=== PATIENT | male | born 1950 | race Caucasian/White ===

== ENCOUNTER 2017-07-31 02:23 | Emergency (ER) | payer MEDICAID, SELFPAY ==
[2017-07-31] VITALS (8 sets, daily range): BP systolic 121–202; BP diastolic 71–126; PULSE 67–81; RESP 12–22; TEMP 36.4; O2SAT 98–100; BMI 28.0
--- NOTE | 2017-07-31 02:31 | ED.CHESTPAIN ---
HPI - Chest Pain General Chief Complaint: Back Pain/Injury Stated Complaint: BACK PAIN Time Seen by Provider: 07/31/17 02:31 Source: patient, EMS and RN notes reviewed Mode of arrival: EMS Limitations: no limitations History of Present Illness HPI narrative: Patient is a 67-year-old male presenting with sudden onset worsening back pain. His he pulled crab Bray yesterday but nothing out of the ordinary. He denies any injury. Thought he could walk it off he was doing well until this evening. The pain suddenly intensified from his back and is now moving around his abdomen on it. This seems to be in the thoracic area but he says his whole back hurts. No numbness or tingling in his lower extremities no weakness in any extremities. No shortness of breath. He was noted to be quite hypertensive for EMS with a systolic in the 200s. He was given nitro aspirin and fat in all prior to arrival his pain is a little bit better. MD complaint: chest pain Onset (ago): hour(s) Duration: constant Severity: severe Severity scale (1-10): 10 Pain radiation: abdomen Treatments prior to arrival chest pain: aspirin, nitroglycerin and other (Sent in all) Related Data Allergies Allergy/AdvReac Type Severity Reaction Status Date / Time No Known Drug Allergies Allergy Verified 07/31/17 02:58 Review of Systems Review of Systems All systems reviewed & are unremarkable except as noted in HPI and below Constitutional Denies chills, Denies fever(s), Denies headache(s), Denies lethargy and Denies weakness ENT Ears, Nose, Mouth, and Throat: Denies dizziness, Denies dry mouth and Denies headache(s) Cardiovascular Denies chest pain, Denies diaphoresis, Denies syncope and Denies dyspnea on exertion Respiratory Denies change in phlegm color, Denies cough and Denies dyspnea on exertion Gastrointestinal Gastrointestinal: Reports abdominal pain, Denies diarrhea, Denies nausea and Denies vomiting Genitourinary Denies dysuria and Denies flank pain Musculoskeletal Reports system reviewed and no additional complaints, except as docu, Reports back pain, Denies muscle weakness, Denies numbness, Denies radiating pain into limb and Denies tingling Neurologic Denies dizziness, Denies syncope, Denies headache(s), Denies numbness, Denies tingling, Denies paresthesias, Denies tremor(s) and Denies weakness [facility] Social History Smoking Status: Current every day smoker Exam Narrative Exam Narrative: Blood pressure 202/116 Heart rate 78 Respirations 22 Temp 97.5 Oxygen 99% Const General: well developed, acute distress (Appears in pain) and No diaphoretic Nutritional Appearance: average body habitus Orientation: alert, awake, oriented x3 and oriented to person HENMO Head: normal to inspection and normocephalic Eyes General: appearance normal, both eyes and all related structures Neck Neck: normal visual inspection, full ROM and No JVD Resp Effort & Inspection: normal respiratory effort and able to speak in complete sentences Auscultation: clear to auscultation bilaterally Cardio Rate: regular rate Rhythm: regular rhythm Heart Sounds: S1 normal and S2 normal Pulses: radial pulses present bilaterally Skin General: no rashes or lesions noted, No mottling, No petechiae and No purpura Neuro General: alert, awake, oriented x3, normal light touch, pain and propioception, normal sensation to monofilament and deep tendon reflexes 2+ bilaterally Cranial Nerves: CN's II-XI intact bilaterally Cognition: normal cognition Speech: speech normal MDM - Chest Pain MDM Narrative Medical decision making narrative: Patient only gets minimal relief with 3 nitroglycerin. He is given morphine which she says helps but is still painful. He is given Dilaudid which he says finally works. D-dimer is significantly elevated in patient's pain is uncontrolled. Concern for dissection. 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 More aggressive management of patient's blood pressure which is now with a systolic of 179-180. Labetalol and nitroprusside 5:[address] Hassan vascular surgery at [facility] has been updated on patient's symptoms and test results he has reviewed the CT. Goal blood pressure is a systolic under 120 and heart rate under 80. Patient will be a direct admit he recommends flying if possible. Patient understands and is agreeable to treatment and transport. Lab Data Attestation: I reviewed the patient's lab results. Result diagrams: 07/31/17 02:15 07/31/17 02:15 Lab Results 07/31/17 07/31/17 07/31/17 Range/Units 02:15 02:15 02:15 WBC 16.1 H (4.5-11.0) X10^3/uL RBC 5.53 (4.5-5.9) X10^6/uL Hgb 17.9 H (13.5-17.5) g/dL Hct 50.4 (41-53) % MCV 91.1 (80-100) fL MCH 32.3 (26-34) PG MCHC 35.5 (30-36) % RDW 13.6 (11.6-14.8) % Plt Count 215 (150-400) X10^3/uL Neut % (Auto) 70.8 (50-75) % Lymph % (Auto) 17.4 L (25-40) % [place] % (Auto) 9.0 (3-14) % Eos % (Auto) 2.0 (2-4) % Baso % (Auto) 0.8 (0-2) % Neut # (Auto) 28320 H (6971-3604) /uL D-Dimer 3878 H (<231) ng/mL Sodium 140 (137-145) mmol/L Potassium 3.8 (3.4-5.1) mmol/L Chloride 103.0 (98-107) mmol/L Carbon Dioxide 26.0 (22-32) mmol/L BUN 26.0 H (9-20) mg/dL Creatinine 0.90 (0.66-1.25) mg/dL Estimated GFR > 60.0 (>60) mL/min BUN/Creatinine Ratio 28.9 H (6-22) Glucose 150 H (80-110) mg/dL Calcium 8.9 (8.4-10.2) mg/dL Total Bilirubin 0.8 (0.2-1.3) mg/dL AST 44 (17-59) IU/L ALT 49 (21-72) IU/L Alkaline Phosphatase 101 (38-126) U/L Total Creatine Kinase 113 (55-170) U/L CK-MB (CK-2) 3.86 H (<2.37) ng/mL CK-MB (CK-2) Rel Index 3.4 (1.5-5.0) % Troponin I 0.037 H (0.01-0.034) ng/mL Total Protein 7.8 (6.3-8.2) g/dL Albumin 4.1 (3.5-5.0) g/dL Globulin 3.7 (1.7-4.1) g/dL Albumin/Globulin Ratio 1.1 (1.0-2.8) Lipase 48 (23-300) U/L Urine RBC (0-5/HPF) Ur Culture Indicated? Micro UA Comment Urine Opiates Screen (Negative) Ur Oxycodone Screen (Negative) Urine Methadone Screen (Negative) Ur Barbiturates Screen (Negative) U Tricyclic Antidepress (Negative) Ur Phencyclidine Scrn (Negative) Ur Amphetamines Screen (Negative) U Methamphetamines Scrn (Negative) Ur MDMA Scrn (Ecstasy) (Negative) U Benzodiazepines Scrn (Negative) Urine Cocaine Screen (Negative) U Marijuana (THC) Screen (Negative) 07/31/17 07/31/17 Range/Units 03:38 03:45 WBC (4.5-11.0) X10^3/uL RBC (4.5-5.9) X10^6/uL Hgb (13.5-17.5) g/dL Hct (41-53) % MCV (80-100) fL MCH (26-34) PG MCHC (30-36) % RDW (11.6-14.8) % Plt Count (150-400) X10^3/uL Neut % (Auto) (50-75) % Lymph % (Auto) (25-40) % [place] % (Auto) (3-14) % Eos % (Auto) (2-4) % Baso % (Auto) (0-2) % Neut # (Auto) (5680-2789) /uL D-Dimer (<231) ng/mL Sodium (137-145) mmol/L Potassium (3.4-5.1) mmol/L Chloride (98-107) mmol/L Carbon Dioxide (22-32) mmol/L BUN (9-20) mg/dL Creatinine (0.66-1.25) mg/dL Estimated GFR (>60) mL/min BUN/Creatinine Ratio (6-22) Glucose (80-110) mg/dL Calcium (8.4-10.2) mg/dL Total Bilirubin (0.2-1.3) mg/dL AST (17-59) IU/L ALT (21-72) IU/L Alkaline Phosphatase (38-126) U/L Total Creatine Kinase (55-170) U/L CK-MB (CK-2) (<2.37) ng/mL CK-MB (CK-2) Rel Index (1.5-5.0) % Troponin I (0.01-0.034) ng/mL Total Protein (6.3-8.2) g/dL Albumin (3.5-5.0) g/dL Globulin (1.7-4.1) g/dL Albumin/Globulin Ratio (1.0-2.8) Lipase (23-300) U/L Urine RBC 0-1/hpf (0-5/HPF) Ur Culture Indicated? Cult not indicated Micro UA Comment Microscopic normal Urine Opiates Screen Positive H (Negative) Ur Oxycodone Screen Negative (Negative) Urine Methadone Screen Negative (Negative) Ur Barbiturates Screen Negative (Negative) U Tricyclic Antidepress Negative (Negative) Ur Phencyclidine Scrn Negative (Negative) Ur Amphetamines Screen Negative (Negative) U Methamphetamines Scrn Negative (Negative) Ur MDMA Scrn (Ecstasy) Negative (Negative) U Benzodiazepines Scrn Negative (Negative) Urine Cocaine Screen Negative (Negative) U Marijuana (THC) Screen Negative (Negative) Imaging Data Chest x-ray: Attestation: I personally reviewed and interpreted this imaging study as follows: My impression: No acute cardiopulmonary process no widened mediastinum CTA chest/ab/pelvis: Radiologist's impression: electrical test technician report there is intramural hematoma in the descending aorta begins just distal to the left subclavian artery and extends to the diaphragm. Focal outpouching of contrast in the distal descending along the anterior medial wall measures approximately 1.7 x 0.8 cm consistent with penetrating atherosclerotic ulcer. There is also irregular mural thrombus at the proximal descending aorta. The transverse aortic diameter proximal descending 3.9 cm, mid descending 4.4 cm, distal descending just above the diaphragm 3.9 cm. The ascending aorta is normal. No intimal flap or emmett disscetion. ECG Data Attestation: I personally reviewed and interpreted this ECG as follows: Prior ECG tracings: not available for review Interpretation: Normal sinus rhythm rate 77 is no T-wave inversions no ST depressions or elevations EKG 2. Sinus rhythm rate 49 similar to previous Critical Care Time Critical Care Time: Yes Total Critical Care Time: 60 Attestation: The patient satisfied the definition of criticality in that they had a high probability of imminent deterioration of their conditon. Critical care time includes time spent at the bedside, plus where appropriate: gathering information from family, EMS, old records, caregivers; interpretation of test results; and time spent discussing patient with other physicians Discharge Plan Departure Patient Disposition: [facility] Clinical Impression: Intramural aortic hematoma
--- NOTE | 2017-07-31 02:33 | DI.RAD.S_ITS ---
PROCEDURE: XR CHEST 2V INDICATIONS: 67 year-old male with chest pain. TECHNIQUE: 2 views of the chest were acquired. COMPARISON: None. FINDINGS: Surgical changes and devices: None. Lungs and pleura: No pleural effusions or pneumothorax. Lungs are clear. Mediastinum: Mediastinal contours are normal. Heart size is normal. There is aortic atherosclerosis. Bones and chest wall: No suspicious bony abnormalities. Soft tissues appear unremarkable. IMPRESSION: No acute cardiopulmonary disease. Dictated by: Nuno Warner M.D. on 07/31/2017 at 7:51 Approved by: Nuno Warner M.D. on 07/31/2017 at 7:52
[2017-07-31] MEDS: NITROGLYCERIN 0.4 MG SL TAB SL ×3 (02:40→03:09)
[2017-07-31] MEDS: SODIUM CHLORIDE 0.9% 1,000 ML 150 ML IV (02:41)
[2017-07-31 02:48] LABS: Add Manual Diff / Slide Review NO; Basophils Percent Auto 0.8 % (0-2); Hematocrit 50.4 % (41-53); Hemoglobin 17.9 g/dL (13.5-17.5); Lymphocytes Percent Auto 17.4 % (25-40); Mean Corpuscular HGB Conc 35.5 % (30-36); Mean Corpuscular Hemoglobin 32.3 PG (26-34); Mean Corpuscular Volume 91.1 fL (80-100); Neutrophils Absolute Auto 11400 /uL (3000-5900); Neutrophils Percent Auto 70.8 % (50-75); Platelet Count 215 X10^3/uL (150-400); Red Blood Cell Count 5.53 X10^6/uL (4.5-5.9); Red Cell Distribution Width 13.6 % (11.6-14.8); White Blood Cell Count 16.1 X10^3/uL (4.5-11.0)
--- NOTE | 2017-07-31 02:48 | PC.NURSE ---
PT STATES SUDDEN SEVERE BACK PAIN AT 199907/30/17 WAS PULLING CRAB POTS EARLIER . PT ARRIVED VIA MEDICS, RECEIVED 324MG ASA, 1 NITRO, AND 100MCG FETANYL. PT ABLE TO TRANSFER FROM MEDIC STRETCHER TO ER STRETCHER BY SLIDING INDEPENDENTLY. PT DENIES CP OR SOB.
[2017-07-31 03:00] LABS: D Dimer 3878 ng/mL (<231)
[2017-07-31] MEDS: MORPHINE 5 MG/ML INJ IV (03:10)
[2017-07-31 03:21] LABS: Alanine Aminotransferase 49 IU/L (21-72); Albumin 4.1 g/dL (3.5-5.0); Albumin Globulin Ratio 1.1 (1.0-2.8); Alkaline Phosphatase 101 U/L (38-126); Aspartate Aminotransferase 44 IU/L (17-59); BUN Creatinine Ratio 28.9 (6-22); Bilirubin Total 0.8 mg/dL (0.2-1.3); Calcium 8.9 mg/dL (8.4-10.2); Creatine Kinase 113 U/L (55-170); Estimated Glomerular Filt Rate > 60.0 mL/min (>60); Globulin 3.7 g/dL (1.7-4.1); Glucose 150 mg/dL (80-110); HEMOLYSIS < 15 (0-50); Lipase 48 U/L (23-300); Potassium 3.8 mmol/L (3.4-5.1); Sodium 140 mmol/L (137-145); Total Protein 7.8 g/dL (6.3-8.2)
--- NOTE | 2017-07-31 03:21 | DI.CT.S_ITS ---
PROCEDURE: CT ANGIO CHEST ABDOMEN PELVIS INDICATIONS: 67-year-old male with back pain and elevated d-dimer level. TECHNIQUE: Precontrast 5 mm thick sections acquired from the lung apices to the iliac crests. After the administration of intravenous contrast, 2.5 mm thick sections again acquired from the lung apices to the iliac crests. Maximum intensity projection (MIP) oblique sagittal and coronal reformats were then acquired. For radiation dose reduction, the following was used: automated exposure control. COMPARISON: None. FINDINGS: Preliminary interpretation rendered by [facility]. Image quality: Excellent. AORTA: Intramural hematoma: Present, along the entire length of the descending thoracic aorta beginning just distal to the origin of the left subclavian artery. Maximum hematoma thickness: 1.4 cm; greater than 1.1 cm has poorer prognosis. Focal contrast enhancement: Intramural blood pool (< 2 mm neck or imperceptible communication with aortic lumen): Absent. Ulcer-like projection (broad communication with aortic lumen > 3 mm): Present, just superior to the diaphragmatic hiatus, measuring 2.3 x 1.9 x 0.9 cm. Dissection: Absent. Kramer classification: Not applicable. Maximum aortic diameter: 4.5 cm in the descending thoracic aorta. [If Fady A dissection, > 5.0 cm has a poorer prognosis. If Fady B dissection, > 4.0 cm has a poorer prognosis.] Additional 3.0 cm infrarenal abdominal aortic aneurysm and 3.1 cm left common iliac artery aneurysm, both containing peripheral mural thrombus. Periaortic hematoma: Absent. CHEST: Lungs and pleura: No acute airspace opacities. No pleural effusions or pneumothorax. Central and peripheral airways are patent and normal in caliber. Mediastinum: Heart size is normal, with mild coronary artery atherosclerosis. No pericardial effusion. No mediastinal or hilar adenopathy by size criteria. Central pulmonary arteries are normal in size. Esophagus is normal in caliber. No hiatal hernias. Bones and chest wall: No axillary adenopathy by size criteria. Thyroid gland is normal in size. No suspicious bony lesions. No vertebral body compression fractures. ABDOMEN: Vasculature: Celiac trunk and mesenteric arteries are patent. Renal arteries are also patent, with bilateral accessory renal arteries present. Solid organs: Liver is normal in size and enhancement. Gallbladder wall thickness is normal. Biliary system is non dilated. Pancreas enhances normally. Spleen is normal in size and enhancement. No adrenal nodules. Both kidneys are normal in size and enhancement, without hydronephrosis. Peritoneum and bowel: No free fluid or air. Bowel loops are normal in caliber and wall thickness. There is sigmoid colon diverticulosis. Nodes and vessels: No retroperitoneal or mesenteric adenopathy by size criteria. Inferior vena cava is normal in morphology. Miscellaneous: No ventral hernias. PELVIS: Genitourinary: Bladder wall thickness is normal. Miscellaneous: No inguinal hernias or adenopathy. No ventral hernias. Bones: No suspicious bony lesions. No vertebral body compression fractures. There is lower lumbar spine facet joint degeneration. IMPRESSION: 1. Extensive descending thoracic aortic intramural hematoma measures up to 1.4 cm thick, containing a 2.3 cm ulcer-like projection near the diaphragmatic hiatus. 2. Additional 3.0 cm infrarenal abdominal aortic aneurysm, and 3.1 cm left common iliac artery aneurysm, with peripheral mural thrombus. 3. Sigmoid colon diverticulosis, without acute diverticulitis. No significant discrepancy with preliminary [employer] report. Dictated by: Nuno Warner M.D. on 07/31/2017 at 8:13 Approved by: Nuno Warner M.D. on 07/31/2017 at 8:35
[2017-07-31] MEDS: HYDROMORPHONE 2 MG INJ 1 MG IV ×2 (03:29→07:01)
[2017-07-31 03:33] LABS: CKMB % Relative Index 3.4 % (1.5-5.0); Creatine Kinase MB 3.86 ng/mL (<2.37); Troponin I 0.037 ng/mL (0.01-0.034)
[2017-07-31 03:55] LABS: Urine Amphetamines Negative (Negative); Urine Barbiturates Negative (Negative); Urine Benzodiazepines Negative (Negative); Urine Cocaine Negative (Negative); Urine MDMA Negative (Negative); Urine Methadone Negative (Negative); Urine Methamphetamines Negative (Negative); Urine Morphine/Opi cutoff 2000 Positive (Negative); Urine Oxycodone Negative (Negative); Urine Phencyclidine Negative (Negative); Urine Tetrahydrocannabinol Negative (Negative); Urine Tricyclic Antidepressant Negative (Negative)
--- NOTE | 2017-07-31 04:19 | ED_ITS ---
HPI - Chest Pain General Chief Complaint: Back Pain/Injury Stated Complaint: BACK PAIN Time Seen by Provider: 07/31/17 02:31 Source: patient, EMS and RN notes reviewed Mode of arrival: EMS Limitations: no limitations History of Present Illness HPI narrative: Patient is a 67-year-old male presenting with sudden onset worsening back pain. His he pulled crab Bray yesterday but nothing out of the ordinary. He denies any injury. Thought he could walk it off he was doing well until this evening. The pain suddenly intensified from his back and is now moving around his abdomen on it. This seems to be in the thoracic area but he says his whole back hurts. No numbness or tingling in his lower extremities no weakness in any extremities. No shortness of breath. He was noted to be quite hypertensive for EMS with a systolic in the 200s. He was given nitro aspirin and fat in all prior to arrival his pain is a little bit better. MD complaint: chest pain Onset (ago): hour(s) Duration: constant Severity: severe Severity scale (1-10): 10 Pain radiation: abdomen Treatments prior to arrival chest pain: aspirin, nitroglycerin and other (Sent in all) Related Data Allergies Allergy/AdvReac Type Severity Reaction Status Date / Time No Known Drug Allergies Allergy Verified 07/31/17 02:58 Review of Systems Review of Systems All systems reviewed & are unremarkable except as noted in HPI and below Constitutional Denies chills, Denies fever(s), Denies headache(s), Denies lethargy and Denies weakness ENT Ears, Nose, Mouth, and Throat: Denies dizziness, Denies dry mouth and Denies headache(s) Cardiovascular Denies chest pain, Denies diaphoresis, Denies syncope and Denies dyspnea on exertion Respiratory Denies change in phlegm color, Denies cough and Denies dyspnea on exertion Gastrointestinal Gastrointestinal: Reports abdominal pain, Denies diarrhea, Denies nausea and Denies vomiting Genitourinary Denies dysuria and Denies flank pain Musculoskeletal Reports system reviewed and no additional complaints, except as docu, Reports back pain, Denies muscle weakness, Denies numbness, Denies radiating pain into limb and Denies tingling Neurologic Denies dizziness, Denies syncope, Denies headache(s), Denies numbness, Denies tingling, Denies paresthesias, Denies tremor(s) and Denies weakness [facility] Social History Smoking Status: Current every day smoker Exam Narrative Exam Narrative: Blood pressure 202/116 Heart rate 78 Respirations 22 Temp 97.5 Oxygen 99% Const General: well developed, acute distress (Appears in pain) and No diaphoretic Nutritional Appearance: average body habitus Orientation: alert, awake, oriented x3 and oriented to person HENAZ Head: normal to inspection and normocephalic Eyes General: appearance normal, both eyes and all related structures Neck Neck: normal visual inspection, full ROM and No JVD Resp Effort & Inspection: normal respiratory effort and able to speak in complete sentences Auscultation: clear to auscultation bilaterally Cardio Rate: regular rate Rhythm: regular rhythm Heart Sounds: S1 normal and S2 normal Pulses: radial pulses present bilaterally Skin General: no rashes or lesions noted, No mottling, No petechiae and No purpura Neuro General: alert, awake, oriented x3, normal light touch, pain and propioception, normal sensation to monofilament and deep tendon reflexes 2+ bilaterally Cranial Nerves: CN's II-XI intact bilaterally Cognition: normal cognition Speech: speech normal MDM - Chest Pain MDM Narrative Medical decision making narrative: Patient only gets minimal relief with 3 nitroglycerin. He is given morphine which she says helps but is still painful. He is given Dilaudid which he says finally works. D-dimer is significantly elevated in patient's pain is uncontrolled. Concern for dissection. 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 More aggressive management of patient's blood pressure which is now with a systolic of 179-180. Labetalol and nitroprusside 5:[address] Hassan vascular surgery at [facility] has been updated on patient 's symptoms and test results he has reviewed the CT. Goal blood pressure is a systolic under 120 and heart rate under 80. Patient will be a direct admit he recommends flying if possible. Patient understands and is agreeable to treatment and transport. Lab Data Attestation: I reviewed the patient's lab results. Result diagrams: 07/31/17 02:15 07/31/17 02:15 Lab Results 07/31/17 07/31/17 07/31/17 Range/Units 02:15 02:15 02:15 WBC 16.1 H (4.5-11.0) X10^3/uL RBC 5.53 (4.5-5.9) X10^6/uL Hgb 17.9 H (13.5-17.5) g/dL Hct 50.4 (41-53) % MCV 91.1 (80-100) fL MCH 32.3 (26-34) PG MCHC 35.5 (30-36) % RDW 13.6 (11.6-14.8) % Plt Count 215 (150-400) X10^3/uL Neut % (Auto) 70.8 (50-75) % Lymph % (Auto) 17.4 L (25-40) % [place] % (Auto) 9.0 (3-14) % Eos % (Auto) 2.0 (2-4) % Baso % (Auto) 0.8 (0-2) % Neut # (Auto) 90955 H (9350-7657) /uL D-Dimer 3878 H (<231) ng/mL Sodium 140 (137-145) mmol/L Potassium 3.8 (3.4-5.1) mmol/L Chloride 103.0 (98-107) mmol/L Carbon Dioxide 26.0 (22-32) mmol/L BUN 26.0 H (9-20) mg/dL Creatinine 0.90 (0.66-1.25) mg/dL Estimated GFR > 60.0 (>60) mL/min BUN/Creatinine Ratio 28.9 H (6-22) Glucose 150 H (80-110) mg/dL Calcium 8.9 (8.4-10.2) mg/dL Total Bilirubin 0.8 (0.2-1.3) mg/dL AST 44 (17-59) IU/L ALT 49 (21-72) IU/L Alkaline Phosphatase 101 (38-126) U/L Total Creatine Kinase 113 (55-170) U/L CK-MB (CK-2) 3.86 H (<2.37) ng/mL CK-MB (CK-2) Rel Index 3.4 (1.5-5.0) % Troponin I 0.037 H (0.01-0.034) ng/mL Total Protein 7.8 (6.3-8.2) g/dL Albumin 4.1 (3.5-5.0) g/dL Globulin 3.7 (1.7-4.1) g/dL Albumin/Globulin Ratio 1.1 (1.0-2.8) Lipase 48 (23-300) U/L Urine RBC (0-5/HPF) Ur Culture Indicated? Micro UA Comment Urine Opiates Screen (Negative) Ur Oxycodone Screen (Negative) Urine Methadone Screen (Negative) Ur Barbiturates Screen (Negative) U Tricyclic Antidepress (Negative) Ur Phencyclidine Scrn (Negative) Ur Amphetamines Screen (Negative) U Methamphetamines Scrn (Negative) Ur MDMA Scrn (Ecstasy) (Negative) U Benzodiazepines Scrn (Negative) Urine Cocaine Screen (Negative) U Marijuana (THC) Screen (Negative) 07/31/17 07/31/17 Range/Units 03:38 03:45 WBC (4.5-11.0) X10^3/uL RBC (4.5-5.9) X10^6/uL Hgb (13.5-17.5) g/dL Hct (41-53) % MCV (80-100) fL MCH (26-34) PG MCHC (30-36) % RDW (11.6-14.8) % Plt Count (150-400) X10^3/uL Neut % (Auto) (50-75) % Lymph % (Auto) (25-40) % [place] % (Auto) (3-14) % Eos % (Auto) (2-4) % Baso % (Auto) (0-2) % Neut # (Auto) (3587-9002) /uL D-Dimer (<231) ng/mL Sodium (137-145) mmol/L Potassium (3.4-5.1) mmol/L Chloride (98-107) mmol/L Carbon Dioxide (22-32) mmol/L BUN (9-20) mg/dL Creatinine (0.66-1.25) mg/dL Estimated GFR (>60) mL/min BUN/Creatinine Ratio (6-22) Glucose (80-110) mg/dL Calcium (8.4-10.2) mg/dL Total Bilirubin (0.2-1.3) mg/dL AST (17-59) IU/L ALT (21-72) IU/L Alkaline Phosphatase (38-126) U/L Total Creatine Kinase (55-170) U/L CK-MB (CK-2) (<2.37) ng/mL CK-MB (CK-2) Rel Index (1.5-5.0) % Troponin I (0.01-0.034) ng/mL Total Protein (6.3-8.2) g/dL Albumin (3.5-5.0) g/dL Globulin (1.7-4.1) g/dL Albumin/Globulin Ratio (1.0-2.8) Lipase (23-300) U/L Urine RBC 0-1/hpf (0-5/HPF) Ur Culture Indicated? Cult not indicated Micro UA Comment Microscopic normal Urine Opiates Screen Positive H (Negative) Ur Oxycodone Screen Negative (Negative) Urine Methadone Screen Negative (Negative) Ur Barbiturates Screen Negative (Negative) U Tricyclic Antidepress Negative (Negative) Ur Phencyclidine Scrn Negative (Negative) Ur Amphetamines Screen Negative (Negative) U Methamphetamines Scrn Negative (Negative) Ur MDMA Scrn (Ecstasy) Negative (Negative) U Benzodiazepines Scrn Negative (Negative) Urine Cocaine Screen Negative (Negative) U Marijuana (THC) Screen Negative (Negative) Imaging Data Chest x-ray: Attestation: I personally reviewed and interpreted this imaging study as follows: My impression: No acute cardiopulmonary process no widened mediastinum CTA chest/ab/pelvis: Radiologist's impression: shift supervisor report there is intramural hematoma in the descending aorta begins just distal to the left subclavian artery and extends to the diaphragm. Focal outpouching of contrast in the distal descending along the anterior medial wall measures approximately 1.7 x 0.8 cm consistent with penetrating atherosclerotic ulcer. There is also irregular mural thrombus at the proximal descending aorta. The transverse aortic diameter proximal descending 3.9 cm, mid descending 4.4 cm, distal descending just above the diaphragm 3.9 cm. The ascending aorta is normal. No intimal flap or emmett disscetion. ECG Data Attestation: I personally reviewed and interpreted this ECG as follows: Prior ECG tracings: not available for review Interpretation: Normal sinus rhythm rate 77 is no T-wave inversions no ST depressions or elevations EKG 2. Sinus rhythm rate 49 similar to previous Critical Care Time Critical Care Time: Yes Total Critical Care Time: 60 Attestation: The patient satisfied the definition of criticality in that they had a high probability of imminent deterioration of their conditon. Critical care time includes time spent at the bedside, plus where appropriate: gathering information from family, EMS, old records, caregivers; interpretation of test results; and time spent discussing patient with other physicians Discharge Plan Departure Patient Disposition: [facility] Clinical Impression: Intramural aortic hematoma
[2017-07-31] MEDS: LABETALOL 20 MG/4 ML SYRINGE IV (04:40)
[2017-07-31] MEDS: WATER IV (04:59)
[2017-07-31] MEDS: NITROPRUSSIDE SODIUM IV (04:59)
[2017-07-31] MEDS: DEXTROSE 5% IV (04:59)
[2017-07-31 05:21] LABS: Culture Indicated Urine Cult Not Indicated; RBC Urine 0-1/HPF (0-5/HPF); Urine Comments Microscopic Normal
[2017-07-31] MEDS: NICOTINE 21 MG PATCH TOP (07:12)
--- NOTE | 2017-07-31 07:35 | PC.NURSE ---
pt transferred to [facility] with [facility] with Nipride drip infusing at 89ml/hr, infusion stop time 0700.
== END 2017-07-31 07:46 | disposition short-term general hospital (02) ==
PROVIDERS: Emergency Provider Emergency Medicine
DX: I71.00 Dissection of unspecified site of aorta (principal)
CPT/HCPCS: 36591; 71046; 71275; 74174; 80053; 80305; 81015; 82550; 82553; 83690; 84484; 85025; 85379; 93005; 96374; 96375; 96376; 99285; 99291; 99292; J1170; J2270; Q9967

== ENCOUNTER → 2020-04-21 08:12 | Outpatient (CLI) | payer MEDICARE, SELFPAY ==
[2020-04-21] MEDS: COVID-19 VACC #1, MRNA(MOD) 100 MCG/0.5 ML VIAL IM (08:20)
== END ==
PROVIDERS: PCP Student in an Organized Health Care Education/Training Program; Visit Provider Internal Medicine
DX: Z23 Encounter for immunization (principal)
CPT/HCPCS: 0011A; 91301

== ENCOUNTER → 2020-05-19 08:07 | Outpatient (CLI) | payer MEDICARE, SELFPAY ==
[2020-05-19] MEDS: COVID-19 VACC #2, MRNA(MOD) 100 MCG/0.5 ML VIAL IM (08:14)
== END ==
PROVIDERS: PCP Student in an Organized Health Care Education/Training Program; Visit Provider Internal Medicine
DX: Z23 Encounter for immunization (principal)
CPT/HCPCS: 0012A; 91301

== ENCOUNTER → 2021-01-02 15:22 | Outpatient (CLI) | payer OTHER, SELFPAY ==
--- NOTE | 2021-01-02 15:24 | DI.RAD.S_ITS ---
PROCEDURE: XR ELBOW RT MIN 3V INDICATIONS: bursitis and pain TECHNIQUE: 3 views of the elbow were acquired. COMPARISON: None. FINDINGS: Bones: There is a displaced fracture at the base of a posterior olecranon enthesophyte that is displaced proximally by up to 1.8 cm. No suspicious bony lesions. Soft tissues: Prominent soft tissue edema is seen posterior to the elbow and there is a probable echo non bursal effusion. No suspicious soft tissue calcifications. IMPRESSION: 1. Acute fracture through the base of a posterior olecranon enthesophyte proximal displacement. 2. Moderate olecranon bursal effusion. Soft tissue edema is seen posterior to the elbow. Dictated by: Mehran Perez M.D. on 01/02/2021 at 15:44 Approved by: Mehran Perez M.D. on 01/02/2021 at 15:47
== END ==
PROVIDERS: PCP Student in an Organized Health Care Education/Training Program; Referring Provider Nurse Practitioner Family; Visit Provider Nurse Practitioner Family
DX: M25.521 Pain in right elbow (principal); S52.021A Displaced fracture of olecranon process without intraarticular extension of right ulna, initial encounter for closed fracture; M25.421 Effusion, right elbow
CPT/HCPCS: 73080

== ENCOUNTER → 2021-01-22 12:18 | Outpatient (CLI) | payer OTHER, SELFPAY ==
--- NOTE | 2021-01-22 12:20 | DI.RAD.S_ITS ---
PROCEDURE: XR HIP W PEL IF DONE LT 2V INDICATIONS: Left hip pain TECHNIQUE: AP pelvis with lateral view(s) of the left hip(s). COMPARISON: None. FINDINGS: Bones: No fractures or dislocations. 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 Mild arthrosis of the right hip. Moderate to advanced arthrosis of the left hip with joint space loss and sclerosis at the superior articulating surfaces. Pelvic ring appears intact. No suspicious bony lesions. Soft tissues: The visualized bowel gas pattern is normal. No suspicious soft tissue calcifications. IMPRESSION: Moderate to advanced arthrosis of the left hip. Dictated by: Reynaldo Irving M.D. on 01/22/2021 at 12:36 Approved by: Reynaldo Irving M.D. on 01/22/2021 at 12:37
== END ==
PROVIDERS: PCP Student in an Organized Health Care Education/Training Program; Referring Provider Student in an Organized Health Care Education/Training Program; Visit Provider Student in an Organized Health Care Education/Training Program
DX: M25.552 Pain in left hip (principal); M16.12 Unilateral primary osteoarthritis, left hip
CPT/HCPCS: 73502

== ENCOUNTER → 2021-02-02 09:21 | Outpatient (CLI) | payer MEDICARE, SELFPAY ==
[2021-02-02] MEDS: COVID-19 VACC #3, MRNA(MOD) 50 MCG/0.25 ML VIAL IM (09:28)
== END ==
PROVIDERS: PCP Student in an Organized Health Care Education/Training Program; Visit Provider Internal Medicine
DX: Z23 Encounter for immunization (principal)
CPT/HCPCS: 0013A; 91301